=== PATIENT | male | born 1975 | race Caucasian/White ===

== ENCOUNTER 2017-08-06 10:19 | Emergency (ER) | payer OTHER, SELFPAY ==
[2017-08-06 10:21] VITALS: BP 149/95; PULSE 82; RESP 16; TEMP 36.7; O2SAT 99; BMI 22.3
--- NOTE | 2017-08-06 10:33 | RAD_ITS ---
STUDY: X-RAY - LEFT SHOULDER REASON FOR EXAM: Male, 42 years old. Left shoulder pain following a fall. TECHNIQUE: 2 view(s) of the shoulder. COMPARISON: None. FINDINGS: Normal glenohumeral articulation. There is widening of the AC joint, with displacement of the clavicle, consistent with a Type III acromioclavicular joint separation. Normal acromion. Normal humeral head and visualized proximal humerus. The soft tissue structures are unremarkable. Normal visualized pulmonary apex. RAD/Shoulder min 2 Views IMPRESSION: Type III left acromioclavicular joint separation. Electronically Signed: Raymundo Ibarra MD at 11:00 EDT Tel [phone], Service support ,
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
[2017-08-06] MEDS: fentaNYL 100 MCG/2 ML Ampul 50 MCG IM (11:09)
[2017-08-06] MEDS: oxyCODONE 5 MG Tablet 10 MG PO (11:49)
[2017-08-06] MEDS: Naproxen 250 MG Tablet 500 MG PO (11:50)
[2017-08-06 11:54] VITALS: BP 135/82; PULSE 82; RESP 18; O2SAT 100
== END 2017-08-06 11:55 | disposition home or self-care (01) ==
LOC: ED 10:38
PROVIDERS: Emergency Provider Emergency Medicine
DX: S43.102A Unspecified dislocation of left acromioclavicular joint, initial encounter (principal); S00.83XA Contusion of other part of head, initial encounter; V18.0XXA Pedal cycle driver injured in noncollision transport accident in nontraffic accident, initial encounter; Y93.55 Activity, bike riding; Y92.89 Other specified places as the place of occurrence of the external cause; Y99.8 Other external cause status
CPT/HCPCS: 73030; 96372; 99285

== ENCOUNTER → 2025-02-27 | Outpatient (CLI) | payer OTHER, SELFPAY | END | disposition home or self-care (01) | LOC: US 15:17 | PROVIDERS: PCP Registered Nurse General Practice | DX: N49.2 Inflammatory disorders of scrotum (principal); N50.82 Scrotal pain | CPT/HCPCS: 76870; 93976 ==

== ENCOUNTER → 2025-04-07 | Outpatient (CLI) | payer OTHER, SELFPAY ==
--- NOTE | 2025-04-07 14:54 | CT_ITS ---
PROCEDURE: LIMITED CHEST CT CARDIAC ONLY 04/07/2025 REASON FOR EXAM: HYPERLIPIDEMIA TECHNIQUE: Procedure Code: [id number] Modality: CT Procedure: LIMITED CHEST CT CARDIAC ONLY CONTRAST: None One or more dose reduction techniques were used (e.g., Automated exposure control, adjustment of the mA and/or kV according to patient size, use of iterative reconstruction technique). RADIATION DOSE SUMMARY: CTDlvol: 12.19 mGy DLP: 170.66 mGycm COMPARISON: None FINDINGS: Borderline cardiomegaly. Coronary artery calcification. The visualized portions of the lungs are unremarkable. CT/Limited Chest CT Cardiac Only IMPRESSION: Borderline cardiomegaly. Coronary artery calcification. Reading Location: [facility]
--- NOTE | 2025-04-07 16:32 | CA.SCORE ---
Calcium Scoring Date of Study:: 04/07/25 Indications Indications: HLD Coronary Calcium Scoring: High-resolution Computed Tomographic imaging of the chest was performed on [04/07/25 ], with particular attention paid to the coronary arteries. Images from the examination were analyzed for the presence and extent of coronary artery calcification , using coronary calcium quantification software. The patient tolerated the procedure well and there were no complications. The results of the coronary calcification analysis are provided below. Findings Coronary Artery Left Main (LM): 0 Left Anterior Descending (LAD): 187 Left Circumflex (LCX): 0 Right Coronary Artery (RCA): 25.4 Total Agatston Score: 212.4 Percentile Rankin-90 Calcium Scoring Interpretation: Different methods to categorize the overall amount of coronary plaque. Overall amount CAC SIS Visual of coronary plaque P1 Mild -100 <2 1-2 vessels with mild amount of plaque P2 Moderate 101-300 3-4 1-2 vessels with moderate amount, 3 vessels with mild amount of plaque P3 Severe 301-999 5-7 3 vessels with moderate amount, 1 vessel with severe amount of plaque P4 Extensive >1000 >8 2-3 vessels with severe amount of plaque Calcium Score: Moderate: 1-2 vessels w/moderate amt, 3 vessels w/mild amt of plaque Conclusion: Mild atherosclerotic plaquing predominantly in 1 vessel.
--- OUTSIDE RECORDS SUMMARY | 2025-04-07 19:05 | XMS RPT_ITS | CCD ---
Author Organization [facility] Care Team Providers Care Plumbers And Top Helpers Name Role Phone Dc Cramer Unavailable Unavailable SACHI LOOMIS Unavailable Unavailable SACHI LOOMIS Unavailable Unavailable Stephy RIVAS, Olga Primary Care Provider Stephy RIVAS, Olga Primary Care Provider KYLAH AMADOR Attending Unavailable KYLAH AMADOR Referring Unavailable OLGA TURCIOS Primary Care Unavailable KYLAH AMADOR Attending Unavailable OLGA TURCIOS Primary Care Unavailable ALEJANDRA BAE Attending Unavailable ALEJANDRA BAE Referring Unavailable Elly Harrington Primary Care Unavailable Elly Harrington Primary Care Unavailable Elly Harrington Attending Unavailable Elly Harrington Referring Unavailable Medications Current Medications Medication Drug Class(es) Dates Sig (Normalized) Sig (Original) acetaminophen 325 mg / oxyCODONE hydrochloride 5 mg oral tablet (1 source) Opioid Agonist Start: 08-06-2017 take 1 tablet by mouth every six hours as needed Oxycodone-Acetaminop hen Active 1 TABLET PO EVERY 6 HOURS NEEDED 20 5 August 06, 2017 12:00am docosahexaenoic acid/epa (FISH OIL ORAL) (8 sources) take 1200 mg by mouth twice daily docosahexaenoic acid/epa (FISH OIL ORAL) Take 1,200 mg by mouth twice daily. Active take 1200 mg by mouth twice jodie y docosahexaenoic acid/epa (FISH OIL ORAL) Take 1,200 mg by mouth twice daily. 0 Active Comment on above: Take 1,200 mg by ana th twice daily. ergocalciferol, vitamin D2, (VITAMIN D2 ORAL) (8 sources) ergocalciferol, vitamin D2, (VITAMIN D2 ORAL) Take 2,000 mg by mouth. Active ergocalciferol, vitamin D2, (VITAMIN D2 ORAL) Take 2,000 mg by mouth. 0 Active Comment on above: Take 2,000 mg by ana th. glucosamine sulfate 1000 mg oral capsule (8 sources) take 1 capsule by mouth twice daily Glucosamine Sulfate 1,000 mg cap Take 1,000 mg by mouth twice daily. Active Comment on above: Take 1,000 mg by ana th twice daily. lysine 1000 mg oral tablet (8 sources) LYSINE ORAL Take 1,000 mg by mouth. Active Comment on above: Take 1,000 mg by ana th. naproxen 500 mg oral tablet (1 source) Nonsteroidal Anti-inflammatory Drug Start: 018 take 500 mg by mouth twice daily Naproxen Active 500 MG PO TWICE A DAY August 06, 2017 12:00am polyethylene glycol 3350 [id number] mg / potassium chloride 2970 mg / sodium bicarbonate 6740 mg / sodium chloride 5860 mg / sodium sulfate 66758 mg powder for oral solution (8 sources) Osmotic Laxative Start: 022 peg 3350-Electrolytes (GOLYTELY) 236-22.74-6.74 -5.86 gram suspension Indications: Screening for colon cancer Refer to printed prep instructions from your provider. 4000 mL 07/27/2021 Active Comment on above: Refer to printed pre p instructions from your provider. tadalafil 5 mg oral tablet (8 sources) Phosphodiesterase 5 Inhibitor Start: 021 Tadalafil (CIALIS) 5 mg tablet Indications: Erectile dysfunction, unspecified erectile dysfunction type Can take 1-2 tablets daily prn prior to sexual activity. 30 tablet 1 10/05/2020 Active Comment on above: Can take 1-2 tablets daily prn prior to sexual activity. Completed/Discontinued Medications Medication Drug Class(es) Dates Sig (Normalized) Sig (Original) calcium chloride 0.0014 meq/ml / potassium chloride 0.004 meq/ml / sodium chloride 0.103 meq/ml / sodium lactate 0.028 meq/ml injectable solution (1 source) Start: 11-02-2023 End: 11-02-2023 lactated ringers iv infusion diphenhydrAMINE (1 source) Histamine-1 Receptor Antagonist Start: 11-02-2023 End: 11-02-2023 diphenhydrAMINE 12.5-50 mg injection (BENADRYL) 1 ml fentaNYL 0.05 mg/ml injection (1 source) Opioid Agonist Start: 11-02-2023 End: 11-02-2023 fentaNYL 50 mcg/mL 25-100 mcg injection (SUBLIMAZE) 5 ml midazolam 1 mg/ml injection (1 source) Benzodiazepine Start: 11-02-2023 End: 11-02-2023 midazolam 1-5 mg injection (VERSED) Problems Active Problems Problem Classification Problem Date Documented Da te Episodic/Chronic Disorders of lipid metabolism (10 sources) Mixed hyperlipidemia; Translations: [Mixed hyperlipidemia] Onset: 07-27-2021 07-27-2021 Chronic Inflammatory conditions of male genital organs (1 source) Inflammatory disorders of scrotum; Translations: [Inflammatory disorders of scrotum] Onset: 03-14-2025 Episodic Other injuries and conditions due to external causes (3 sources) Injury of hip region; Translations: [Unspecified injury of right hip, initial encounter] Episodic Other injuries and conditions due to external causes (1 source) Injury of right hip region; Translations: [Unspecified injury of right hip, initial encounter] 09-27-2021 Episodic Other non-traumatic joint disorders (3 sources) Hip pain; Translations: [Pain in right hip] Episodic Unclassified (1 source) Unknown / UNK(Unknown) Onset: 08-07-2017 Past or Other Problems Problem Classification Problem Date Documented Da te Episodic/Chronic Intracranial injury (1 source) Concussion without loss of consciousness, initial encounter; Translations: [Concussion without loss of consciousness, initial encounter] Onset: 08-07-2017 Episodic Other screening for suspected conditions (not mental disorders or infectious disease) (5 sources) Patient encounter status; Translations: [Encounter for screening for malignant neoplasm of colon] Onset: 11-02-2023 09-18-2023 Episodic Unclassified (1 source) Concussion without loss of consciousness, initial encounter Onset: 08-07-2017 Results Test Name Value Interpretation Reference Range Facility Testicular with Arterial Piero won 02-27-2025 Testicular with Arterial Flow [facility] [address] [place] [address] Testicular with Arterial Flow MR#: [id number] Acct: [id number] Name: ANGÉLICA DAY Rep #: [id number] : 1975 M 50 From: Amparo Fuller MD PCP: GENO Thompson Status: REG CLI Study: Testicular with Arterial Flow Date of Exam: Exam# [id number] Ordering Dr: ELLY SCHREIBER PROCEDURE: TESTICULAR WITH ARTERIAL FLOW 02/27/2025 REASON FOR EXAM: INFLAMMATORY DISORDERS OF SCROTUM. Painful lump right testicle. TECHNIQUE: Procedure Code: USTES Modality: US Procedure: TESTICULAR WITH ARTERIAL FLOW COMPARISON: None. FINDINGS: RIGHT TESTICLE: Normal echotexture and size measuring 4.7 x 2.6 x 2.2 cm. No mass. Normal Doppler flow. LEFT TESTICLE: Normal echotexture and size measuring 4.9 x 3.1 x 2.2 cm. No mass. Normal Doppler flow. EPIDIDYMIDES: Normal echotexture, size and vascularity bilaterally. Right epididymal head measuring 1.4 x 2.3 x 1.2 cm containing a 1.2 x 1.2 x 0.7 cm anechoic cyst. Left epididymal head measuring 1.2 x 1.5 x 0.9 cm containing a 0.9 x 1.0 x 0.8 cm cyst with internal echoes. SCROTUM: Unremarkable. No abnormal wall thickening. No evidence of hydrocele or varicocele. US/Testicular with Arterial Flow IMPRESSION: 1. Simple 1.2 cm right epididymal head cyst. 2. Complex 1.0 cm left epididymal cyst, likely a spermatocele. Reading Location: [facility] CC: GENO Harrington; ELLY SCHREIBER Marketing Regional Consultant: Signed [facility] [id number] 11-02-2023 [id number] HNO ID: [id number] Author: KEYANA MARC RN Service: ? Author Type: Registered Nurse Type: [id number] Filed: 11/02/2023 12:52 Note Text: The patient received a copy of Colonoscopy discharge instructions that contain information for how to contact the physician who performed the procedure and when to seek medical care.Keyana Marc RN [facility] Colonoscopyon 11-02-2023 Colonoscopy [facility] Gastrointestinal Endoscopy Patient Name: Angélica Day Procedure Date: 11/02/2023 11:48 AM Date of : 1975 Admit Type: Outpatient Age: 48 Gender: Male Note Status: Finalized Procedure: Colonoscopy Indications: Screening for colorectal malignant neoplasm Providers: Kylah Amador MD Patient Profile: Refer to note in patient chart for documentation of history and physical. Last Colonoscopy: none. The patient's first colonoscopy is today. Referring Physician: Kylah Amador MD (Referring MD) Medicines: Midazolam 5 mg IV, Fentanyl 100 micrograms IV, Diphenhydramine 50 mg IV Complications: No immediate complications. Requesting Provider: Procedure: Pre-Anesthesia Assessment: - Prior to the procedure, a History and Physical was performed, and patient medications and allergies were reviewed. The patient is competent. The risks and benefits of the procedure and the sedation options and risks were discussed with the patient. All questions were answered and informed consent was obtained. Patient identification and proposed procedure were verified by the physician in the pre-procedure area. Mental Status Examination: alert and oriented. Airway Examination: normal oropharyngeal airway and neck mobility. Respiratory Examination: clear to auscultation. CV Examination: normal. Prophylactic Antibiotics: The patient does not require prophylactic antibiotics. Prior Anticoagulants: The patient has taken no anticoagulant or antiplatelet agents. ASA Grade Assessment: II - A patient with mild systemic disease. After reviewing the risks and benefits, the patient was deemed in satisfactory condition to undergo the procedure. The anesthesia plan was to use moderate sedation / analgesia (conscious sedation). Immediately prior to administration of medications, the patient was re-assessed for adequacy to receive sedatives. The heart rate, respiratory rate, oxygen saturations, blood pressure, adequacy of pulmonary ventilation, and response to care were monitored throughout the procedure. The physical status of the patient was re-assessed after the procedure. After I obtained informed consent, the scope was passed under direct vision. Throughout the procedure, the patient's blood pressure, pulse, and oxygen saturations were monitored continuously. The Colonoscope was introduced through the anus and advanced to the cecum, identified by the appendiceal orifice, IC valve and transillumination. The colonoscopy was performed without difficulty. The patient tolerated the procedure well. The quality of the bowel preparation was adequate. The appendiceal orifice and the rectum were photographed. Moderate Sedation: The administration of moderate sedation was initiated at 11:51 AM. Moderate (conscious) sedation was personally administered by the endoscopist. The following parameters were monitored: oxygen saturation, heart rate, blood pressure, respiratory rate, EKG, adequacy of pulmonary ventilation, and response to care. Total physician intraservice time was 28 minutes. Findings: The perianal and digital rectal examinations were normal. A few medium-mouthed diverticula were found in the sigmoid colon. Non-bleeding internal hemorrhoids were found. Impression: - Diverticulosis in the sigmoid colon. - Non-bleeding internal hemorrhoids. - No specimens collected. Recommendation: - Repeat colonoscopy in 10 years for screening purposes. - Return to primary care physician PRN. - Patient has a contact number available for emergencies. The signs and symptoms of potential delayed complications were discussed with the patient. Return to normal activities tomorrow. Written discharge instructions were provided to the patient. - Continue present medications. - Resume previous diet. Procedure Code(s): --- Professional --- G0121, Colorectal cancer screening; colonoscopy on individual not meeting criteria for high risk G0500, Moderate sedation services provided by the same physician or other qualified health skin care technician performing a gastrointestinal endoscopic service that sedation supports, requiring the presence of an independent trained observer to assist in the monitoring of the patient's level of consciousness and physiological status; initial 15 minutes of intra-service time; patient age 5 years or older (additional time may be reported with 07706, as appropriate) 86391, Moderate sedation; each additional 15 minutes intraservice time Diagnosis Code(s): --- Professional --- K57.30, Diverticulosis of large intestine without perforation or abscess without bleeding K64.8, Other hemorrhoids Z12.11, Encounter for screening for malignant neoplasm of colon CPT copyright 2020 [employer]. All rights reserved. The codes documented in this report are preliminary and upon plating tank operator apprentice review may be srinivasan (more content not included)... Normal [facility] Colonoscopy Study observatio non 11-02-2023 [facility] Gastrointestinal Endoscopy Patient Name: Angélica Day Procedure Date: 11/02/2023 11:48 AM Date of : 1975 Admit Type: Outpatient Age: 48 Gender: Male Note Status: Finalized Procedure: Colonoscopy Indications: Screening for colorectal malignant neoplasm Providers: Kylah Amador MD Patient Profile: Refer to note in patient chart for documentation of history and physical. Last Colonoscopy: none. The patient's first colonoscopy is today. Referring Physician: Kylah Amador MD (Referring MD) Medicines: Midazolam 5 mg IV, Fentanyl 100 micrograms IV, Diphenhydramine 50 mg IV Complications: No immediate complications. Requesting Provider: Procedure: Pre-Anesthesia Assessment: - Prior to the procedure, a History and Physical was performed, and patient medications and allergies were reviewed. The patient is competent. The risks and benefits of the procedure and the sedation options and risks were discussed with the patient. All questions were answered and informed consent was obtained. Patient identification and proposed procedure were verified by the physician in the pre-procedure area. Mental Status Examination: alert and oriented. Airway Examination: normal oropharyngeal airway and neck mobility. Respiratory Examination: clear to auscultation. CV Examination: normal. Prophylactic Antibiotics: The patient does not require prophylactic antibiotics. Prior Anticoagulants: The patient has taken no anticoagulant or antiplatelet agents. ASA Grade Assessment: II - A patient with mild systemic disease. After reviewing the risks and benefits, the patient was deemed in satisfactory condition to undergo the procedure. The anesthesia plan was to use moderate sedation / analgesia (conscious sedation). Immediately prior to administration of medications, the patient was re-assessed for adequacy to receive sedatives. The heart rate, respiratory rate, oxygen saturations, blood pressure, adequacy of pulmonary ventilation, and response to care were monitored throughout the procedure. The physical status of the patient was re-assessed after the procedure. After I obtained informed consent, the scope was passed under direct vision. Throughout the procedure, the patient's blood pressure, pulse, and oxygen saturations were monitored continuously. The Colonoscope was introduced through the anus and advanced to the cecum, identified by the appendiceal orifice, IC valve and transillumination. The colonoscopy was performed without difficulty. The patient tolerated the procedure well. The quality of the bowel preparation was adequate. The appendiceal orifice and the rectum were photographed. Moderate Sedation: The administration of moderate sedation was initiated at 11:51 AM. Moderate (conscious) sedation was personally administered by the endoscopist. The following parameters were monitored: oxygen saturation, heart rate, blood pressure, respiratory rate, EKG, adequacy of pulmonary ventilation, and response to care. Total physician intraservice time was 28 minutes. Findings: The perianal and digital rectal examinations were normal. A few medium-mouthed diverticula were found in the sigmoid colon. Non-bleeding internal hemorrhoids were found. Impression: - Diverticulosis in the sigmoid colon. - Non-bleeding internal hemorrhoids. - No specimens collected. Recommendation: - Repeat colonoscopy in 10 years for screening purposes. - Return to primary care physician PRN. - Patient has a contact number available for emergencies. The signs and symptoms of potential delayed complications were discussed with the (more content not included)... [facility] Radiology Study observation (narrative) HISTORY PHYSICALon HISTORY PHYSICAL HNO ID: [id number] Author: KYLAH AMADOR MD Service: General Surgery Author Type: Physician Type: H&P Filed: 11/02/2023 11:15 Note Text: HISTORY AND PHYSICAL Angélica Day 1975 REFERRING PHYSICIAN: Babak Whitakeran* CHIEF COMPLAINT: Consult (Colonoscopy , no prior colonoscopy) HPI: The patient is a 48 year old male referred for endoscopy. The patient denies blood in stools, denies abdominal pain, and denies changes in bowel habits. The patient is adopted and does not know his family medical history The patient has not had previous colonoscopy. PAST MEDICAL HISTORY PAST MEDICAL HISTORY Diagnosis Date Mixed hyperlipidemia PAST SURGICAL HISTORY PAST SURGICAL HISTORY Procedure Laterality Date PAST SURGICAL HISTORY OF [facility] eye surgery REPAIR INGUINAL HERNIA VASECTOMY UNI/BI SPX W/POSTOP SEMEN EXAMS CURRENT MEDICATIONS Current Outpatient Medications Medication Sig docosahexaenoic acid/epa (FISH OIL ORAL) Take 1,200 mg by mouth twice daily. Glucosamine Sulfate 1,000 mg cap Take 1,000 mg by mouth twice daily. LYSINE ORAL Take 1,000 mg by mouth. ergocalciferol, vitamin D2, (VITAMIN D2 ORAL) Take 2,000 mg by mouth. Tadalafil (CIALIS) 5 mg tablet Can take 1-2 tablets daily prn prior to sexual activity. peg 3350-Electrolytes (GOLYTELY) 236-22.74-6.74 -5.86 gram suspension Refer to printed prep instructions from your provider. (Patient not taking: Reported on 09/17/2023) No current facility-administered medications for this visit. ALLERGIES: Patient has no known allergies. PERSONAL HISTORY: SOCIAL HISTORY Social History Tobacco Use Smoking status: Never Smokeless tobacco: Never Vaping Use Vaping Use: Never used Substance Use Topics Alcohol use: Not Currently Drug use: Yes Types: Marijuana Comment: very rarely with eat an edible FAMILY HISTORY FAMILY HISTORY Adopted: Yes Family history unknown: Yes REVIEW OF SYSTEMS: General: The patient denies fatigue, denies weight loss, denies weight gain, denies feeling hot, and denies feelings of cold. Eyes: The patient denies glaucoma, notes eye injury/surgery, does not wear glasses or contacts. Ear/Nose/Throat: The patient denies allergies, denies hayfever, denies ear infections, and denies bloody noses. Cardiovascular: The patient denies chest pain, denies heart disease, denies high blood pressure,denies cardiac stent, denies prior heart attack, denies irregular heart beat, notes high cholesterol, denies poor circulation, denies heart failure, other cardiac issues, denies claudication, denies cold feet, denies peripheral arterial stent. Respiratory: The patient denies tuberculosis, denies pneumonia, denies frequent cough, denies pulmonary embolism, denies shortness of breath, and denies coughing up blood. Gastrointestinal: The patient denies difficulty swallowing, denies acid reflux, denies ulcers, denies vomiting, denies jaundice/hepatitis, denies gallbladder problems, denies black or tarry stools, denies hemorrhoids, denies bleeding from rectum, denies diverticulitis, denies constipation, denies diarrhea, denies loss of stool control, and denies hernias. Kidney/Bladder: The patient denies kidney stones, denies urine infections, and denies bloody urine. Skin: The patient denies a history of skin cancer, denies bleeding/changing moles, and denies a history of skin rash. Neurologic: The patient denies a history of epilepsy/convulsions, denies headaches, denies head/spinal injuries, and denies stroke/TIA. Psychiatric: The patient denies psychiatric medications, denies depression, and denies voices, denies substance abuse. Endocrine: The patient denies thyroid disorders, denies diabetes, and denies hormonal problems. Hematologic: The patient denies a history of bruising, denies bleeding, and denies anemia, denies blood clots. Infections: The patient denies a history of measles and mumps, denies rheumatic fever, and denies sexually transmitted diseases. Musculoskeletal: The patient denies back pain/injury, denies back problems, denies sciatica, denies knee/foot trouble, denies arthritis, or denies gout. When was patient's last Mammogram screening? N/A Last Colonoscopy: none Akua Gutiérrez, RICHARD PHYSICAL EXAMINATION: General: The patient is 48 year old male, well nourished, well hydrated in no acute distress. The patient is oriented to time, place, and person. VITALS: Blood pressure 100/72, pulse 72, temperature 36.3 ?C (97.4 ?F), height 180.3 cm (5' 11"), weight 93.4 kg (206 lb), SpO2 97%. Body mass index is 28.73 kg/m?. Head: Normal cephalic, atraumatic Eyes: pupils are equally round, sclera are clear/anicteric Neck is supple with no tracheal deviation Cardiac: normal heart sounds, regular Respiratory: Normal respiratory excursion and pattern. Abdominal exam: benign Extremities: no clubbing, cyanosis or edema. Neuro: non focal Psych: normal mood IMPRESSIO (more content not included)... Normal [facility] NURSING PROGon 11-02-2023 NURSING PROG HNO ID: [id number] Author: MKAEDA CORTES RN Service: ? Author Type: Registered Nurse Type: Nursing Progress Note Filed: 11/02/2023 12:30 Note Text: Patient arrived laying on left side. Patient does not appear to be in any pain at this time. Abdomen appears to be nondistended and soft to palpation. Patient encouraged to belch and pass gas as needed. Normal [facility] CNOVon 09-17-2023 CNOV Office Visit (GENSWS ) ANGÉLICA DAY ([id number]) 1975 M Date Time Provider Department 09/17/23 1:00 PM KYLAH AMADOR During your visit today, we recorded the following information about you: Temperature Pulse Blood pressure Weight 97.4 degrees 72/minute 100/72 93.4 kg Height 1.803 m Kylah Amador MD 09/18/2023 3:48 PM Signed HISTORY AND PHYSICAL Angélica Kye Day 1975 REFERRING PHYSICIAN: Babak Whitakeran* CHIEF COMPLAINT: Consult (Colonoscopy , no prior colonoscopy) HPI: The patient is a 48 year old male referred for endoscopy. The patient denies blood in stools, denies abdominal pain, and denies changes in bowel habits. The patient is adopted and does not know his family medical history The patient has not had previous colonoscopy. PAST MEDICAL HISTORY Diagnosis Date Mixed hyperlipidemia PAST SURGICAL HISTORY Procedure Laterality Date PAST SURGICAL HISTORY OF [facility] eye surgery REPAIR INGUINAL HERNIA VASECTOMY UNI/BI SPX W/POSTOP SEMEN EXAMS Current Outpatient Medications Medication Sig docosahexaenoic acid/epa (FISH OIL ORAL) Take 1,200 mg by mouth twice daily. Glucosamine Sulfate 1,000 mg cap Take 1,000 mg by mouth twice daily. LYSINE ORAL Take 1,000 mg by mouth. ergocalciferol, vitamin D2, (VITAMIN D2 ORAL) Take 2,000 mg by mouth. Tadalafil (CIALIS) 5 mg tablet Can take 1-2 tablets daily prn prior to sexual activity. peg 3350-Electrolytes (GOLYTELY) 236-22.74-6.74 -5.86 gram suspension Refer to printed prep instructions from your provider. (Patient not taking: Reported on 09/17/2023) No current facility-administered medications for this visit. ALLERGIES: Patient has no known allergies. PERSONAL HISTORY: Social History Tobacco Use Smoking status: Never Smokeless tobacco: Never Vaping Use Vaping Use: Never used Substance Use Topics Alcohol use: Not Currently Drug use: Yes Types: Marijuana Comment: very rarely with eat an edible FAMILY HISTORY Adopted: Yes Family history unknown: Yes The review of systems data was entered by the nurse and reviewed by wa Nursing Notes: Akua Gutiérrez LPN 09/17/2023 1:12 PM Signed REVIEW OF SYSTEMS: General: The patient denies fatigue, denies weight loss, denies weight gain, denies feeling hot, and denies feelings of cold. Eyes: The patient denies glaucoma, notes eye injury/surgery, does not wear glasses or contacts. Ear/Nose/Throat: The patient denies allergies, denies hayfever, denies ear infections, and denies bloody noses. Cardiovascular: The patient denies chest pain, denies heart disease, denies high blood pressure,denies cardiac stent, denies prior heart attack, denies irregular heart beat, notes high cholesterol, denies poor circulation, denies heart failure, other cardiac issues, denies claudication, denies cold feet, denies peripheral arterial stent. Respiratory: The patient denies tuberculosis, denies pneumonia, denies frequent cough, denies pulmonary embolism, denies shortness of breath, and denies coughing up blood. Gastrointestinal: The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 [place] Start: 09-16-2021 End: 09-26-2021 Exposure to SARS-CoV-2 (event) Unable to assess Work Phone: Start: 10-12-2021 History SDOH Physica l Activity DPW 5 Start: 10-12-2021 History SDOH Stress 1 [facility] Start: 10-21-2021 End: 10-31-2021 Exposure to SARS-CoV-2 (event) Not sure Work Phone: Start: 1975 Sex Assigned At Male W [facility] Work Phone: Start: 08-07-2017 End: 09-17-2023 Tobacco use and exposure Smokeless tobacco non-user Start: 10-12-2021 End: 09-17-2023 History of Social function Start: 10-12-2021 End: 09-17-2023 Social connection and isolation panel In a typical week, h ow many times do you talk on the telephone with family, friends, or neighbors? Patient declined Do you feel stress - tense, restless, nervous, or anxious, or unable to sleep at night because your mind is troubled all the time - these days [OSQ] Not at all In the past 12 month s, was there a time when you were not able to pay the mortgage or rent on time? No Start: 01-01-2019 Gender identity Identifies as male gender (finding) Work Phone: Start: 01-01-2019 Sexual orientation Heterosexual (wilton gimenez) Do you feel stress - tense, restless, nervous, or anxious, or unable to sleep at night because your mind is troubled all the time - these days [OSQ] Only a little Clinical Notes 09-27-2021 to 11-02-2023 Makeda Cortes RN - 11/02/2023 12:30 PM EDTDischarge Instr - Nursing - Keyana Marc RN - 11/02/2023 12:30 PM EDTGMakeda ross RN - 11/02/2023 12:30 PM EDT Note Date & Type Note Facility 11-02-2023 Nurse Note Patient arrived laying on left side. Patient does not appear to be in any pain at this time. Abdomen appears to be nondistended and soft to palpation. Patient encouraged to belch and pass gas as needed. 11-02-2023 Note Formatting of this n ote might be different from the original. The patient received a copy of Colonoscopy discharge instructions that contain information for how to contact the physician who performed the procedure and when to seek medical care.Keyana Marc RN 11-02-2023 Miscellaneous Notes The patient received a copy of Colonoscopy discharge instructions that contain information for how to contact the physician who performed the procedure and when to seek medical care.Keyana Marc RN documented in this encounter 11-02-2023 Nurse Note Patient arrived laying on left side. Patient does not appear to be in any pain at this time. Abdomen appears to be nondistended and soft to palpation. Patient encouraged to belch and pass gas as needed. documented in this encounter 11-02-2023 Attending History and physical note UPDATED PROCEDURAL SEDATION HISTORY AND PHYSICAL EXAMINATION SERVICE DATE: 11/02/2023 SERVICE TIME: 11:49 PHYSICAL EXAM MUST BE COMPLETED ON ADMISSION PROCEDURE: colonoscopy, possible biopsies Procedure Indications: screening for colon cancer The History and Physical (completed in the past 30 days) has been reviewed and the patient has been examined. The contents accurately reflect the patient's condition with the following additions or revisions since the H&P was completed. ASA Class: ASA Class:: Patient with mild systemic disease Examination indicates no changes. AIRWAY: Airway Visualization of Uvula: Yes Mouth opening greater than 2 fingerbreadths: Yes Neck Full Range of Motion: Yes LUNGS: Lungs clear to auscultation CARDIAC: Regular rhythm,Regular rate Provisional Diagnosis/Treatment Plan: colonoscopy possible biopsies SEDATION GOAL: Moderate This H&P can be found in the Electronic Medical Record. SIGNATURE: Kylah Amador MD PATIENT NAME: Angélica Day DATE: November 02, 2023 TIME: 11:51 AM Source Note - Kylah Amador MD - 11/02/2023 12:00 PM EDT HISTORY AND PHYSICAL Angélica Day 1975 REFERRING PHYSICIAN: Administration, * CHIEF COMPLAINT: Consult (Colonoscopy , no prior colonoscopy) HPI: The patient is a 48 year old male referred for endoscopy. The patient denies blood in stools, denies abdominal pain, and denies changes in bowel habits. The patient is adopted and does not know his family medical history The patient has not had previous colonoscopy. PAST MEDICAL HISTORY PAST MEDICAL HISTORY Diagnosis Date Mixed hyperlipidemia PAST SURGICAL HISTORY PAST SURGICAL HISTORY Procedure Laterality Date PAST SURGICAL HISTORY OF [facility] eye surgery REPAIR INGUINAL HERNIA VASECTOMY UNI/BI SPX W/POSTOP SEMEN EXAMS CURRENT MEDICATIONS Current Outpatient Medications Medication Sig docosahexaenoic acid/epa (FISH OIL ORAL) Take 1,200 mg by mouth twice daily. Glucosamine Sulfate 1,000 mg cap Take 1,000 mg by mouth twice daily. LYSINE ORAL Take 1,000 mg by mouth. ergocalciferol, vitamin D2, (VITAMIN D2 ORAL) Take 2,000 mg by mouth. Tadalafil (CIALIS) 5 mg tablet Can take 1-2 tablets daily prn prior to sexual activity. peg 3350-Electrolytes (GOLYTELY) 236-22.74-6.74 -5.86 gram suspension Refer to printed prep instructions from your provider. (Patient not taking: Reported on 09/17/2023) No current facility-administered medications for this visit. ALLERGIES: Patient has no known allergies. PERSONAL HISTORY: SOCIAL HISTORY Social History Tobacco Use Smoking status: Never Smokeless tobacco: Never Vaping Use Vaping Use: Never used Substance Use Topics Alcohol use: Not Currently Drug use: Yes Types: Marijuana Comment: very rarely with eat an edible FAMILY HISTORY FAMILY HISTORY Adopted: Yes Family history unknown: Yes REVIEW OF SYSTEMS: General: The patient denies fatigue, denies weight loss, denies weight gain, denies feeling hot, and denies feelings of cold. Eyes: The patient denies glaucoma, notes eye injury/surgery, does not wear glasses or contacts. Ear/Nose/Throat: The patient denies allergies, denies hayfever, denies ear infections, and denies bloody noses. Cardiovascular: The patient denies chest pain, denies heart disease, denies high blood pressure,denies cardiac stent, denies prior heart attack, denies irregular heart beat, notes high cholesterol, denies poor circulation, denies heart failure, other cardiac issues, denies claudication, denies cold feet, denies peripheral arterial stent. Respiratory: The patient denies tuberculosis, denies pneumonia, denies frequent cough, denies pulmonary embolism, denies shortness of breath, and denies coughing up blood. Gastrointestinal: The patient denies difficulty swallowing, denies acid reflux, denies ulcers, denies vomiting, denies jaundice/hepatitis, denies gallbladder problems, denies black or tarry stools, denies hemorrhoids, denies bleeding from rectum, denies diverticulitis, denies constipation, denies diarrhea, denies loss of stool control, and denies hernias. Kidney/Bladder: The patient denies kidney stones, denies urine infections, and denies bloody urine. Skin: The patient denies a history of skin cancer, denies bleeding/changing moles, and denies a history of skin rash. Neurologic: The patient denies a history of epilepsy/convulsions, denies headaches, denies head/spinal injuries, and denies stroke/TIA. Psychiatric: The patient denies psychiatric medications, denies depression, and denies voices, denies substance abuse. Endocrine: The patient denies thyroid disorders, denies diabetes, and denies hormonal problems. Hematologic: The patient denies a history of bruising, denies bleeding, and denies anemia, denies blood clots. Infections: The patient denies a history of measles and mumps, denies rheumatic fever, and denies sexually transmitted diseases. Musculoskeletal: The patient denies back pain/injury, denies back problems, denies sciatica, denies knee/foot trouble, denies arthritis, or denies gout. When was patient's last Mammogram screening? N/A Last Colonoscopy: none Akua Gutiérrez LPN PHYSICAL EXAMINATION: General: The patient is 48 year old male, well nourished, well hydrated in no acute distress. The patient is oriented to time, place, and person. VITALS: Blood pressure 100/72, pulse 72, temperature 36.3 C (97.4 F), height 180.3 cm (5' 11"), weight 93.4 kg (206 lb), SpO2 97%. Body mass index is 28.73 kg/m . Head: Normal cephalic, atraumatic Eyes: pupils are equally round, sclera are clear/anicteric Neck is supple with no tracheal deviation Cardiac: normal heart sounds, regular Respiratory: Normal respiratory excursion and pattern. Abdominal exam: benign Extremities: no clubbing, cyanosis or edema. Neuro: non focal Psych: normal mood IMPRESSION: screening for colon cancer PLAN: I have discussed the above with the patient. I have offered colonoscopy , possible biopsies I have explained the procedure to the patient. I have counseled the patient as to the risks of the procedure, including but not limited to: infection, bleeding, injury to any intrabdominal organs such as liver/spleen, perforation of the GI tract, inability to complete the procedure, complications of anesthesia, etc. - the patient understands. The patient wishes to proceed. I have answered all questions to the patient s satisfaction and the patient has no further questions. . 11-02-2023 History and physical note HISTORY AND PHYSICAL Angélica Day 1975 REFERRING PHYSICIAN: Juana Whitaker* CHIEF COMPLAINT: Consult (Colonoscopy , no prior colonoscopy) HPI: The patient is a 48 year old male referred for endoscopy. The patient denies blood in stools, denies abdominal pain, and denies changes in bowel habits. The patient is adopted and does not know his family medical history The patient has not had previous colonoscopy. PAST MEDICAL HISTORY PAST MEDICAL HISTORY Diagnosis Date Mixed hyperlipidemia PAST SURGICAL HISTORY PAST SURGICAL HISTORY Procedure Laterality Date PAST SURGICAL HISTORY OF [facility] eye surgery REPAIR INGUINAL HERNIA VASECTOMY UNI/BI SPX W/POSTOP SEMEN EXAMS CURRENT MEDICATIONS Current Outpatient Medications Medication Sig docosahexaenoic acid/epa (FISH OIL ORAL) Take 1,200 mg by mouth twice daily. Glucosamine Sulfate 1,000 mg cap Take 1,000 mg by mouth twice daily. LYSINE ORAL Take 1,000 mg by mouth. ergocalciferol, vitamin D2, (VITAMIN D2 ORAL) Take 2,000 mg by mouth. Tadalafil (CIALIS) 5 mg tablet Can take 1-2 tablets daily prn prior to sexual activity. peg 3350-Electrolytes (GOLYTELY) 236-22.74-6.74 -5.86 gram suspension Refer to printed prep instructions from your provider. (Patient not taking: Reported on 09/17/2023) No current facility-administered medications for this visit. ALLERGIES: Patient has no known allergies. PERSONAL HISTORY: SOCIAL HISTORY Social History Tobacco Use Smoking status: Never Smokeless tobacco: Never Vaping Use Vaping Use: Never used Substance Use Topics Alcohol use: Not Currently Drug use: Yes Types: Marijuana Comment: very rarely with eat an edible FAMILY HISTORY FAMILY HISTORY Adopted: Yes Family history unknown: Yes REVIEW OF SYSTEMS: General: The patient denies fatigue, denies weight loss, denies weight gain, denies feeling hot, and denies feelings of cold. Eyes: The patient denies glaucoma, notes eye injury/surgery, does not wear glasses or contacts. Ear/Nose/Throat: The patient denies allergies, denies hayfever, denies ear infections, and denies bloody noses. Cardiovascular: The patient denies chest pain, denies heart disease, denies high blood pressure,denies cardiac stent, denies prior heart attack, denies irregular heart beat, notes high cholesterol, denies poor circulation, denies heart failure, other cardiac issues, denies claudication, denies cold feet, denies peripheral arterial stent. Respiratory: The patient denies tuberculosis, denies pneumonia, denies frequent cough, denies pulmonary embolism, denies shortness of breath, and denies coughing up blood. Gastrointestinal: The patient denies difficulty swallowing, denies acid reflux, denies ulcers, denies vomiting, denies jaundice/hepatitis, denies gallbladder problems, denies black or tarry stools, denies hemorrhoids, denies bleeding from rectum, denies diverticulitis, denies constipation, denies diarrhea, denies loss of stool control, and denies hernias. Kidney/Bladder: The patient denies kidney stones, denies urine infections, and denies bloody urine. Skin: The patient denies a history of skin cancer, denies bleeding/changing moles, and denies a history of skin rash. Neurologic: The patient denies a history of epilepsy/convulsions, denies headaches, denies head/spinal injuries, and denies stroke/TIA. Psychiatric: The patient denies psychiatric medications, denies depression, and denies voices, denies substance abuse. Endocrine: The patient denies thyroid disorders, denies diabetes, and denies hormonal problems. Hematologic: The patient denies a history of bruising, denies bleeding, and denies anemia, denies blood clots. Infections: The patient denies a history of measles and mumps, denies rheumatic fever, and denies sexually transmitted diseases. Musculoskeletal: The patient denies back pain/injury, denies back problems, denies sciatica, denies knee/foot trouble, denies arthritis, or denies gout. When was patient's last Mammogram screening? N/A Last Colonoscopy: none Akua GutiérrezRICHARD PHYSICAL EXAMINATION: General: The patient is 48 year old male, well nourished, well hydrated in no acute distress. The patient is oriented to time, place, and person. VITALS: Blood pressure 100/72, pulse 72, temperature 36.3 C (97.4 F), height 180.3 cm (5' 11"), weight 93.4 kg (206 lb), SpO2 97%. Body mass index is 28.73 kg/m . Head: Normal cephalic, atraumatic Eyes: pupils are equally round, sclera are clear/anicteric Neck is supple with no tracheal deviation Cardiac: normal heart sounds, regular Respiratory: Normal respiratory excursion and pattern. Abdominal exam: benign Extremities: no clubbing, cyanosis or edema. Neuro: non focal Psych: normal mood IMPRESSION: screening for colon cancer PLAN: I have discussed the above with the patient. I have offered colonoscopy , possible biopsies I have explained the procedure to the patient. I have counseled the patient as to the risks of the procedure, including but not limited to: infection, bleeding, injury to any intrabdominal organs such as liver/spleen, perforation of the GI tract, inability to complete the procedure, complications of anesthesia, etc. - the patient understands. The patient wishes to proceed. I have answered all questions to the patient s satisfaction and the patient has no further questions. . T 11-02-2023 History and physical note UPDATED PROCEDURAL SEDATION HISTORY AND PHYSICAL EXAMINATION SERVICE DATE: 11/02/2023 SERVICE TIME: 11:49 PHYSICAL EXAM MUST BE COMPLETED ON ADMISSION PROCEDURE: colonoscopy, possible biopsies Procedure Indications: screening for colon cancer The History and Physical (completed in the past 30 days) has been reviewed and the patient has been examined. The contents accurately reflect the patient's condition with the following additions or revisions since the H&P was completed. ASA Class: ASA Class:: Patient with mild systemic disease Examination indicates no changes. AIRWAY: Airway Visualization of Uvula: Yes Mouth opening greater than 2 fingerbreadths: Yes Neck Full Range of Motion: Yes LUNGS: Lungs clear to auscultation CARDIAC: Regular rhythm,Regular rate Provisional Diagnosis/Treatment Plan: colonoscopy possible biopsies SEDATION GOAL: Moderate This H&P can be found in the Electronic Medical Record. SIGNATURE: Kylah Amador MD PATIENT NAME: Angélica Day DATE: November 02, 2023 TIME: 11:51 AM Source Note - Kylah Amador MD - 11/02/2023 12:00 PM EDT HISTORY AND PHYSICAL Angélica Day 1975 REFERRING PHYSICIAN: Administration, * CHIEF COMPLAINT: Consult (Colonoscopy , no prior colonoscopy) HPI: The patient is a 48 year old male referred for endoscopy. The patient denies blood in stools, denies abdominal pain, and denies changes in bowel habits. The patient is adopted and does not know his family medical history The patient has not had previous colonoscopy. PAST MEDICAL HISTORY PAST MEDICAL HISTORY Diagnosis Date Mixed hyperlipidemia PAST SURGICAL HISTORY PAST SURGICAL HISTORY Procedure Laterality Date PAST SURGICAL HISTORY OF [facility] eye surgery REPAIR INGUINAL HERNIA VASECTOMY UNI/BI SPX W/POSTOP SEMEN EXAMS CURRENT MEDICATIONS Current Outpatient Medications Medication Sig docosahexaenoic acid/epa (FISH OIL ORAL) Take 1,200 mg by mouth twice daily. Glucosamine Sulfate 1,000 mg cap Take 1,000 mg by mouth twice daily. LYSINE ORAL Take 1,000 mg by mouth. ergocalciferol, vitamin D2, (VITAMIN D2 ORAL) Take 2,000 mg by mouth. Tadalafil (CIALIS) 5 mg tablet Can take 1-2 tablets daily prn prior to sexual activity. peg 3350-Electrolytes (GOLYTELY) 236-22.74-6.74 -5.86 gram suspension Refer to printed prep instructions from your provider. (Patient not taking: Reported on 09/17/2023) No current facility-administered medications for this visit. ALLERGIES: Patient has no known allergies. PERSONAL HISTORY: SOCIAL HISTORY Social History Tobacco Use Smoking status: Never Smokeless tobacco: Never Vaping Use Vaping Use: Never used Substance Use Topics Alcohol use: Not Currently Drug use: Yes Types: Marijuana Comment: very rarely with eat an edible FAMILY HISTORY FAMILY HISTORY Adopted: Yes Family history unknown: Yes REVIEW OF SYSTEMS: General: The patient denies fatigue, denies weight loss, denies weight gain, denies feeling hot, and denies feelings of cold. Eyes: The patient denies glaucoma, notes eye injury/surgery, does not wear glasses or contacts. Ear/Nose/Throat: The patient denies allergies, denies hayfever, denies ear infections, and denies bloody noses. Cardiovascular: The patient denies chest pain, denies heart disease, denies high blood pressure,denies cardiac stent, denies prior heart attack, denies irregular heart beat, notes high cholesterol, denies poor circulation, denies heart failure, other cardiac issues, denies claudication, denies cold feet, denies peripheral arterial stent. Respiratory: The patient denies tuberculosis, denies pneumonia, denies frequent cough, denies pulmonary embolism, denies shortness of breath, and denies coughing up blood. Gastrointestinal: The patient denies difficulty swallowing, denies acid reflux, denies ulcers, denies vomiting, denies jaundice/hepatitis, denies gallbladder problems, denies black or tarry stools, denies hemorrhoids, denies bleeding from rectum, denies diverticulitis, denies constipation, denies diarrhea, denies loss of stool control, and denies hernias. Kidney/Bladder: The patient denies kidney stones, denies urine infections, and denies bloody urine. Skin: The patient denies a history of skin cancer, denies bleeding/changing moles, and denies a history of skin rash. Neurologic: The patient denies a history of epilepsy/convulsions, denies headaches, denies head/spinal injuries, and denies stroke/TIA. Psychiatric: The patient denies psychiatric medications, denies depression, and denies voices, denies substance abuse. Endocrine: The patient denies thyroid disorders, denies diabetes, and denies hormonal problems. Hematologic: The patient denies a history of bruising, denies bleeding, and denies anemia, denies blood clots. Infections: The patient denies a history of measles and mumps, denies rheumatic fever, and denies sexually transmitted diseases. Musculoskeletal: The patient denies back pain/injury, denies back problems, denies sciatica, denies knee/foot trouble, denies arthritis, or denies gout. When was patient's last Mammogram screening? N/A Last Colonoscopy: none Akua Gutiérrez, RICHARD PHYSICAL EXAMINATION: General: The patient is 48 year old male, well nourished, well hydrated in no acute distress. The patient is oriented to time, place, and person. VITALS: Blood pressure 100/72, pulse 72, temperature 36.3 C (97.4 F), height 180.3 cm (5' 11"), weight 93.4 kg (206 lb), SpO2 97%. Body mass index is 28.73 kg/m . Head: Normal cephalic, atraumatic Eyes: pupils are equally round, sclera are clear/anicteric Neck is supple with no tracheal deviation Cardiac: normal heart sounds, regular Respiratory: Normal respiratory excursion and pattern. Abdominal exam: benign Extremities: no clubbing, cyanosis or edema. Neuro: non focal Psych: normal mood IMPRESSION: screening for colon cancer PLAN: I have discussed the above with the patient. I have offered colonoscopy , possible biopsies I have explained the procedure to the patient. I have counseled the patient as to the risks of the procedure, including but not limited to: infection, bleeding, injury to any intrabdominal organs such as liver/spleen, perforation of the GI tract, inability to complete the procedure, complications of anesthesia, etc. - the patient understands. The patient wishes to proceed. I have answered all questions to the patient s satisfaction and the patient has no further questions. . HISTORY AND PHYSICAL Angélica Kye Day 1975 REFERRING PHYSICIAN: Administration, * CHIEF COMPLAINT: Consult (Colonoscopy , no prior colonoscopy) HPI: The patient is a 48 year old male referred for endoscopy. The patient denies blood in stools, denies abdominal pain, and denies changes in bowel habits. The patient is adopted and does not know his family medical history The patient has not had previous colonoscopy. PAST MEDICAL HISTORY PAST MEDICAL HISTORY Diagnosis Date Mixed hyperlipidemia PAST SURGICAL HISTORY PAST SURGICAL HISTORY Procedure Laterality Date PAST SURGICAL HISTORY OF [facility] surgery REPAIR INGUINAL HERNIA VASECTOMY UNI/BI SPX W/POSTOP SEMEN EXAMS CURRENT MEDICATIONS Current Outpatient Medications Medication Sig docosahexaenoic acid/epa (FISH OIL ORAL) Take 1,200 mg by mouth twice daily. Glucosamine Sulfate 1,000 mg cap Take 1,000 mg by mouth twice daily. LYSINE ORAL Take 1,000 mg by mouth. ergocalciferol, vitamin D2, (VITAMIN D2 ORAL) Take 2,000 mg by mouth. Tadalafil (CIALIS) 5 mg tablet Can take 1-2 tablets daily prn prior to sexual activity. peg 3350-Electrolytes (GOLYTELY) 236-22.74-6.74 -5.86 gram suspension Refer to printed prep instructions from your provider. (Patient not taking: Reported on 09/17/2023) No current facility-administered medications for this visit. ALLERGIES: Patient has no known allergies. PERSONAL HISTORY: SOCIAL HISTORY Social History Tobacco Use Smoking status: Never Smokeless tobacco: Never Vaping Use Vaping Use: Never used Substance Use Topics Alcohol use: Not Currently Drug use: Yes Types: Marijuana Comment: very rarely with eat an edible FAMILY HISTORY FAMILY HISTORY Adopted: Yes Family history unknown: Yes REVIEW OF SYSTEMS: General: The patient denies fatigue, denies weight loss, denies weight gain, denies feeling hot, and denies feelings of cold. Eyes: The patient denies glaucoma, notes eye injury/surgery, does not wear glasses or contacts. Ear/Nose/Throat: The patient denies allergies, denies hayfever, denies ear infections, and denies bloody noses. Cardiovascular: The patient denies chest pain, denies heart disease, denies high blood pressure,denies cardiac stent, denies prior heart attack, denies irregular heart beat, notes high cholesterol, denies poor circulation, denies heart failure, other cardiac issues, denies claudication, denies cold feet, denies peripheral arterial stent. Respiratory: The patient denies tuberculosis, denies pneumonia, denies frequent cough, denies pulmonary embolism, denies shortness of breath, and denies coughing up blood. Gastrointestinal: The patient denies difficulty swallowing, denies acid reflux, denies ulcers, denies vomiting, denies jaundice/hepatitis, denies gallbladder problems, denies black or tarry stools, denies hemorrhoids, denies bleeding from rectum, denies diverticulitis, denies constipation, denies diarrhea, denies loss of stool control, and denies hernias. Kidney/Bladder: The patient denies kidney stones, denies urine infections, and denies bloody urine. Skin: The patient denies a history of skin cancer, denies bleeding/changing moles, and denies a history of skin rash. Neurologic: The patient denies a history of epilepsy/convulsions, denies headaches, denies head/spinal injuries, and denies stroke/TIA. Psychiatric: The patient denies psychiatric medications, denies depression, and denies voices, denies substance abuse. Endocrine: The patient denies thyroid disorders, denies diabetes, and denies hormonal problems. Hematologic: The patient denies a history of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
== END | disposition home or self-care (01) ==
LOC: CT 14:50
PROVIDERS: PCP Registered Nurse General Practice; Referring Provider Registered Nurse General Practice; Visit Provider Registered Nurse General Practice
DX: E78.5 Hyperlipidemia, unspecified (principal)
CPT/HCPCS: 75571; 76380